=== PATIENT | male | born 1955 | race Caucasian/White ===

== ENCOUNTER 2023-12-14 07:00 | Day surgery (SDC) | payer MEDICARE ==
[~2023-12-14 07:00] MED LIST: Lactated Ringers 1,000 ML IV SCH; Morphine 8 MG, EPINEPHrine 0.3 MG, Cefuroxime 750 MG, Ketorolac 30 MG, Sodium Chloride ... PRN; Sodium Chloride 0.9% 10 ML Syringe FLUSH PRN; Sodium Chloride 0.9% 10 ML Syringe FLUSH SCH
[2023-12-14] MEDS: Lactated Ringers 1,000 ML IV SCH (07:15)
[2023-12-14] MEDS ORDERED: fentaNYL 100 MCG/2 ML SDV ONE (07:24)
[2023-12-14] MEDS ORDERED: Propofol 200 MG/20 ML SDV ONE (07:24)
[2023-12-14] MEDS ORDERED: Midazolam 1 MG/ML 2 ML SDV ONE (07:25)
[2023-12-14] MEDS ORDERED: Lidocaine 2% 5 ML SDV ONE (07:29)
[2023-12-14] MEDS ORDERED: ceFAZolin 2 GM Vial ONE (07:31)
[2023-12-14] MEDS: Acetaminophen 325 MG Tab PO SCH (07:32)
[2023-12-14] MEDS: Pregabalin 25 MG Cap PO SCH (07:33)
[2023-12-14] MEDS: oxyCODONE ER 10 MG TAB.ER PO SCH (07:33)
[2023-12-14] MEDS ORDERED: fentaNYL 100 MCG/2 ML SDV IVPUSH PRN (08:10)
[2023-12-14] MEDS ORDERED: HYDROmorphone 0.5 MG/0.5 ML Syringe IVPUSH PRN (08:10)
[2023-12-14] MEDS ORDERED: Ondansetron 4 MG/2 ML SDV IVPUSH PRN (08:10)
[2023-12-14] MEDS: Vancomycin 1 GM SDV ONE (10:10)
[2023-12-14] MEDS: Tranexamic Acid 1,000 MG/10 ML Vial ONE (10:10)
[2023-12-14] MEDS: Morphine 8 MG, EPINEPHrine 0.3 MG, Cefuroxime 750 MG, Ketorolac 30 MG, Sodium Chloride ... PRN (10:12)
[2023-12-14] MEDS: oxyCODONE 5 MG Tab PO PRN (15:24)
[2023-12-14 16:23] VITALS: BP 134/78; PULSE 72
== END 2023-12-14 16:00 | disposition home or self-care (01) ==
LOC: JD.SDS 07:00
PROVIDERS: ATTEND Orthopaedic Surgery
DX: M16.12 Unilateral primary osteoarthritis, left hip (principal); I12.9 Hypertensive chronic kidney disease with stage 1 through stage 4 chronic kidney disease, or unspecified chronic kidney disease; E11.22 Type 2 diabetes mellitus with diabetic chronic kidney disease; N18.30 Chronic kidney disease, stage 3 unspecified; F41.1 Generalized anxiety disorder; K21.9 Gastro-esophageal reflux disease without esophagitis; J44.9 Chronic obstructive pulmonary disease, unspecified; F33.9 Major depressive disorder, recurrent, unspecified; E78.00 Pure hypercholesterolemia, unspecified; E66.9 Obesity, unspecified; Z68.29 Body mass index [BMI] 29.0-29.9, adult; F17.210 Nicotine dependence, cigarettes, uncomplicated; Z79.899 Other long term (current) drug therapy
CPT/HCPCS: 0055T; 27130; 36415; 73501; 82947; 86850; 86900; 86901; 97161; A9270; C1713; C1776; J0171; J0690; J0697; J1885; J2250; J2270; J2704; J3370; J7030; J7120; 01214; J3010; J3490

== ENCOUNTER 2025-01-29 09:56 | Day surgery (SDC) | payer MEDICARE ==
[~2025-01-29 09:56] MED LIST changes: -Morphine 8 MG, EPINEPHrine 0.3 MG, Cefuroxime 750 MG, Ketorolac 30 MG, Sodium Chloride ... PRN
[2025-01-29] MEDS: Lactated Ringers 1,000 ML IV SCH (10:30)
[2025-01-29] MEDS ORDERED: Ondansetron 4 MG/2 ML SDV ONE (10:52)
[2025-01-29] MEDS ORDERED: Lidocaine 1% 2 ML ONE (10:52)
[2025-01-29] MEDS ORDERED: Propofol 200 MG/20 ML SDV ONE ×2 (10:53→11:05)
[2025-01-29] MEDS ORDERED: fentaNYL 100 MCG/2 ML SDV ONE (11:10)
[2025-01-29 13:48] VITALS: PULSE 72
[2025-01-29 13:49] VITALS: BP 141/78
== END 2025-01-29 13:20 | disposition home or self-care (01) ==
LOC: JD.SDS 09:56
PROVIDERS: ATTEND Surgery
DX: Z12.11 Encounter for screening for malignant neoplasm of colon (principal); D12.4 Benign neoplasm of descending colon; D12.3 Benign neoplasm of transverse colon; E78.00 Pure hypercholesterolemia, unspecified; I25.10 Atherosclerotic heart disease of native coronary artery without angina pectoris; I12.9 Hypertensive chronic kidney disease with stage 1 through stage 4 chronic kidney disease, or unspecified chronic kidney disease; E11.22 Type 2 diabetes mellitus with diabetic chronic kidney disease; N18.30 Chronic kidney disease, stage 3 unspecified; E66.9 Obesity, unspecified; F41.1 Generalized anxiety disorder; K21.9 Gastro-esophageal reflux disease without esophagitis; Z79.899 Other long term (current) drug therapy; Z86.0100 Personal history of colon polyps, unspecified
CPT/HCPCS: 45380; J2003; J2405; J2704; J3010; J7120; 00811; 99100